=== PATIENT | female | born 1985 | race Caucasian/White ===

== ENCOUNTER 2018-02-21 10:55 | Emergency (ER) | payer OTHER, SELFPAY ==
[2018-02-21 11:04] VITALS: BP 105/60; PULSE 85; RESP 15; TEMP 37.2; O2SAT 100; BMI 21.6
--- NOTE | 2018-02-21 11:07 | ED.FEMALEGU ---
HPI - Female Genitourinary General Chief complaint: Urogenital-Female Stated complaint: PELVIC PAIN Time Seen by Provider: 02/21/18 11:06 Source: patient Mode of arrival: ambulatory Limitations: no limitations History of Present Illness HPI Narrative: 32 y/o female here for evaluation of pelvic pain. she states that it has been going on for the past day or so, no urinary sx, she is on her menses. has an IUD, no hx of STD's, no concerned about STD's. no vaginal discharge except for menses, no urinary sx, no bowel sx, no prior ABD surgeries, no skin changes, some nausea but no vomiting. Related Data Home Medications Medication Instructions Recorded Confirmed No Known Home Medications 02/21/18 02/21/18 Allergies Allergy/AdvReac Type Severity Reaction Status Date / Time No Known Drug Allergies Allergy Verified 02/21/18 11:04 Review of Systems Constitutional Denies fatigue, Denies fever(s) and Denies headache(s) ENT Ears, Nose, Mouth, and Throat: Denies vertigo and Denies headache(s) Cardiovascular Denies chest pain, Denies syncope and Denies dyspnea Respiratory Denies dyspnea Gastrointestinal Gastrointestinal: Denies abdominal pain, Denies melena, Denies bloating, Denies hematochezia, Denies cramping, Denies diarrhea, Denies loose stools, Reports nausea and Denies vomiting Comments: pelvic pain Genitourinary Denies amenorrhea, Denies hematuria, Denies urinary frequency, Denies genital pruritis, Denies dysuria, Denies urinary hesitancy, Reports vaginal discharge (menses), Denies vaginal dryness, Denies vaginal odor and Denies vaginal pruritus Musculoskeletal Denies myalgias and Denies arthralgias Integumentary/Breasts Denies lesions and Denies rash Neurologic Denies vertigo, Denies syncope and Denies headache(s) Endocrine Denies fatigue Hematologic/Lymphatic Denies easy bleeding and Denies easy bruising [facility] Surgical History History of third molar tooth extraction Status post delivery (11/11/12) Status post delivery (04/25/14) Family History Father Age: 61 Diabetes mellitus Heart disease Hypertension Stroke Grandmother Hypertension Kidney disease Mother Age: 56 Hypertension Grandfather Cancer Diabetes mellitus Heart disease Hypertension Grandmother Age: 82 Diabetes mellitus Hypertension Kidney disease Exam Initial Vital Signs Initial Vital Signs: Vital Signs Temperature 98.9 F 02/21/18 11:04 Pulse Rate 85 02/21/18 11:04 Respiratory Rate 15 02/21/18 11:04 Blood Pressure 105/60 02/21/18 11:04 Pulse Oximetry 100 02/21/18 11:04 Const General: cooperative, healthy appearing, comfortable, well developed, well groomed and No acute distress Orientation: alert, awake and oriented x3 HENMT Head: normal to inspection, normocephalic and atraumatic Resp Effort & Inspection: normal respiratory effort GI Inspection: normal to inspection, abdominal wall ecchymosis and non-distended Palpation: No soft, No firm, No rigid and No tender Other: tender to bilateral adnexa/lower abd General: bladder normal to palpation and No CVA tenderness Bimanual Exam- Vagina & Uterus: bladder normal to palpation Skin Lesions: no lesions Rashes: no rashes Neuro General: alert, awake and oriented x3 Extrem General: normal to inspection and capillary refill normal Psych Appearance: grossly normal and well kempt Course Vital Signs - 8 hr 02/21/18 11:04 Temperature 98.9 F Pulse Rate 85 Respiratory Rate 15 Blood Pressure 105/60 Pulse Oximetry 100 MDM - Female Genitourinary Lab Data Attestation: I reviewed the patient's lab results. Point of Care Testing Test Results Negative Urine Dip Bedside Urine Glucose Negative Bedside Urine Bilirubin - Negative Bedside Urine Ketone - Negative Urine Specific [place] 1.010 Bedside Urine Occult Blood ++ Bedside Urine pH 6.0 Bedside Urine Protein - Negative Bedside Urine Urobilinogen - Negative Bedside Urine Nitrite - Negative Bedside Urine Leukocytes - Negative Esterase Imaging Data US - abdomen: Radiologist's impression: [address] [address] Ultrasound Report Signed Patient: Oma Hdz JMR#: [id number] : 1985Acct:[id number] Age/Sex: 32 / FDate of Service: 02/21/18 Loc: ED Accession Number: [id number] Procedure: US pelvic complete Ordering Provider: Randy Gutiérrez D.O. PROCEDURE: US PELVIC COMPLETE INDICATIONS: Pelvic pain, sudden onset yesterday, eval for ovarian torsio TECHNIQUE: Real-time scanning was performed of the pelvic organs, with image documentation. Additional endovaginal scanning was necessary due to incomplete visualization of the adnexal and endometrial structures by transabdominal scanning. COMPARISON: None. FINDINGS: Transabdominal scanning: Limited scanning through the kidneys shows no hydronephrosis. No pathologic free abdominal or pelvic fluid. Endovaginal scanning: Uterus: Uterus is normal in size at 4.2 x 5.8 x 2 cm, anteverted. The endometrium measures 5 mm in combined thickness. There is a small amount of echogenic fluid within the endometrial space and an IUD. Ovaries: Normal measuring up to 2.7 x 2.6 x 3.4 cm on the right at 2.5 x 2.6 x 2.1 cm on the left IMPRESSION: Centrally positioned IUD noted within the endometrial space, is a small amount of endometrial free fluid, no endometrial mass or evidence of is present. Normal-appearing ovaries bilaterally. Dictated by: Roberto Perry M.D. on 02/21/2018 at 12:28 Approved by: Roberto Perry M.D. on 02/21/2018 at 12:31 MDM Narrative Medical decision making narrative: pt not concerned about STI's, pelvic US unremarkable, IUD in place. discussed with pt that her ovaries appear well on the US, labs unremarkable, no UTI, HCG neg. discussed that I did not have an exact etiology for her symptoms. informed her that we could obtain a CT scan to evaluate for other surgical pathology such as appy or SBO etc. After this discussion we decided not to do the CT scan and to instead wait to see if her symptoms worsen or [employer] exchange administrator the next 12-24 hours. she was informed that if her symptoms do not improve or worsen she should return to the ER to be re-evaluated and would consider a CT swcan at that point. she expressed understanding and agreement with the plan. Discharge Plan Departure Patient Disposition: Home Clinical Impression: Pelvic pain Discharge Date/Time: 02/21/18 13:00 Interventions: ED Discharge Assessment Last Done: 02/21/18 12:59 Instructions: DI for Pelvic Pain Activity Restrictions/Additional Instructions: After discussions today we opted not to perform a CT scan. This is not unreasonable given her presentation. If her symptoms worsen, if you have new symptoms, fevers, nausea vomiting, I recommend that you return to the emergency department for re-evaluation. Call your primary care doctor for a follow-up. Prescriptions: No Action No Known Home Medications RF: 0
--- NOTE | 2018-02-21 11:33 | DI.US.S_ITS ---
PROCEDURE: US PELVIC COMPLETE INDICATIONS: Pelvic pain, sudden onset yesterday, eval for ovarian torsio TECHNIQUE: Real-time scanning was performed of the pelvic organs, with image documentation. Additional endovaginal scanning was necessary due to incomplete visualization of the adnexal and endometrial structures by transabdominal scanning. COMPARISON: None. FINDINGS: Transabdominal scanning: Limited scanning through the kidneys shows no hydronephrosis. No pathologic free abdominal or pelvic fluid. Endovaginal scanning: Uterus: Uterus is normal in size at 4.2 x 5.8 x 2 cm, anteverted. The endometrium measures 5 mm in combined thickness. There is a small amount of echogenic fluid within the endometrial space and an IUD. Ovaries: Normal measuring up to 2.7 x 2.6 x 3.4 cm on the right at 2.5 x 2.6 x 2.1 cm on the left IMPRESSION: Centrally positioned IUD noted within the endometrial space, is a small amount of endometrial free fluid, no endometrial mass or evidence of is present. Normal-appearing ovaries bilaterally. Dictated by: Roberto Perry M.D. on 02/21/2018 at 12:28 Approved by: Roberto Perry M.D. on 02/21/2018 at 12:31
[2018-02-21 12:59] VITALS: BP 93/54; PULSE 64; RESP 17; TEMP 36.9; O2SAT 100
== END 2018-02-21 13:00 | disposition home or self-care (01) ==
PROVIDERS: Emergency Provider Emergency Medicine; Family Provider Internal Medicine; PCP Internal Medicine
DX: R10.2 Pelvic and perineal pain (principal)
CPT/HCPCS: 76830; 76856; 81003; 81025; 99282; 99284

== ENCOUNTER 2018-08-16 18:30 | Emergency (ER) | payer OTHER, SELFPAY ==
[2018-08-16 19:02] VITALS: BP 101/60; PULSE 67; RESP 15; TEMP 37.2; O2SAT 100; BMI 22.4
[2018-08-16] MEDS: ONDANSETRON 4 MG ODT SL (19:23)
--- NOTE | 2018-08-16 21:37 | DI.US.S_ITS ---
PROCEDURE: US OB <= 14 WEEKS FETUS INDICATIONS: BACK PAIN, ABDOMINAL PAIN, KNOWN 7 WEEKS OUTSIDE/PRIOR DATING DATA: Last menstrual period (LMP): 06/26/18. LMP-based estimated date of delivery (EDITH): 04/02/19. First dating scan (date and location): 08/16/18. Estimated date of delivery (EDITH) from first dating scan: 04/04/19. TECHNIQUE: Real-time scanning was performed of the fetus and maternal pelvic organs, with image documentation. COMPARISON: None. FINDINGS: Embryo: Single intrauterine gestational sac is seen with fetus and yolk sac noted. heart rate is 155 beats per minute. [place]-rump length measures 9 mm. Estimated gestational age is 7 weeks zero days. Estimated gestational age is 04/04/19. Measurement variability in dating: +/- 4 weeks by LMP, +/- 7 days by mean sac diameter (use before 6 weeks gestation if crown-rump length not able to be measured), +/- 5 days by crown-rump length (up to 8 weeks 6 days gestation), +/- 7 days by crown-rump length (up to 13 weeks 6 days gestation). Maternal organs: Ovaries are visualized and are within normal limits. Limited images through the kidneys demonstrate no hydronephrosis. IMPRESSION: Single live intrauterine with estimated gestational age of 7 weeks zero days. heart rate is 155 beats per minute. Normal appearing bilateral ovaries. Dictated by: Marcus Leblanc M.D. on 08/17/2018 at 9:32 Approved by: Marcus Leblanc M.D. on 08/17/2018 at 9:37
--- NOTE | 2018-08-16 21:39 | ED.HA ---
HPI - Headache General Chief Complaint: Headache Stated Complaint: has a horrible headache with N/V Time Seen by Provider: 08/16/18 21:27 Source: patient Mode of arrival: ambulatory Limitations: no limitations History of Present Illness HPI Narrative: The patient is a 33-year-old female who is currently 7 weeks she is (twins)1ab, presenting with headache. She does not typically get headaches she said this 1 started this afternoon she is sensitive to light and noise she felt nauseous she vomited she tried to take Tylenol and threw up Tylenol. She is having lower abdominal pain and back pain no vaginal bleeding. She has got some cramping. She has no fever no flank pain. no neck pain no history of headache MD Complaint: headache Related Data Home Medications Medication Instructions Recorded Confirmed No Known Home Medications 02/21/18 02/21/18 Allergies Allergy/AdvReac Type Severity Reaction Status Date / Time No Known Drug Allergies Allergy Verified 08/16/18 19:02 Review of Systems Review of Systems ROS Unobtainable: All systems reviewed & are unremarkable except as noted in HPI and below Constitutional Denies chills, Denies fever(s), Reports headache(s), Denies lethargy and Denies weakness ENT Ears, Nose, Mouth, and Throat: Denies change in voice, Denies vertigo, Denies dizziness, Reports headache(s), Denies neck pain and Denies sore throat Cardiovascular Denies chest pain, Denies syncope, Denies irregular heart rhythm, Denies lightheadedness, Denies palpitations, Denies dyspnea, Denies dyspnea on exertion and Denies orthopnea Respiratory Denies cough, Denies dyspnea, Denies dyspnea on exertion and Denies wheezing Gastrointestinal Gastrointestinal: Reports as per HPI, Reports abdominal pain, Denies diarrhea, Reports nausea and Reports vomiting Genitourinary Reports as per HPI and Reports flank pain Musculoskeletal Reports back pain and Denies neck pain Integumentary/Breasts Denies pruritus, Denies erythema, Denies rash and Denies wounds Neurologic Reports as per HPI, Denies vertigo, Denies dizziness, Denies syncope, Reports headache(s) and Denies weakness Endocrine Denies palpitations Allergic/Immunologic Denies wheezing [facility] Medical History Anxiety (Chronic 2014) Depression (Chronic 2014) Infertility (Chronic 2011) Migraines (Chronic 2009) Chicken pox (Resolved 1988) Ovarian cyst (Resolved 2010) Surgical History Anesthesia (Resolved) History of bilateral inguinal hernia repair (Resolved 09/06/17) History of third molar tooth extraction (Resolved 2008) Status post delivery (Resolved 11/11/12) Status post delivery (Resolved 04/25/14) Family History Father Age: 62 Diabetes mellitus Heart disease Hypertension Stroke Grandmother Hypertension Kidney disease Mother Age: 57 Hypertension Grandfather Cancer Diabetes mellitus Heart disease Hypertension Grandmother Age: 83 Diabetes mellitus Hypertension Kidney disease Social History Smoking Status: Unknown if ever smoked Family History Father Age: 62 Diabetes mellitus Heart disease Hypertension Stroke Grandmother Hypertension Kidney disease Mother Age: 57 Hypertension Grandfather Cancer Diabetes mellitus Heart disease Hypertension Grandmother Age: 83 Diabetes mellitus Hypertension Kidney disease Social History Smoking Status: Unknown if ever smoked Exam Initial Vital Signs Initial Vital Signs: Vital Signs Temperature 99.0 F 08/16/18 19:02 Pulse Rate 67 08/16/18 19:02 Respiratory Rate 15 08/16/18 19:02 Blood Pressure 101/60 08/16/18 19:02 Pulse Oximetry 100 08/16/18 19:02 GENERAL: Well-appearing, well-nourished and in no acute distress. HEENT: Head atraumatic,EOMI, pupils reactive, face symmetric, neck is supple no JVD CARDIOVASCULAR: Regular rate and rhythm without murmurs, rubs or gallops. RESPIRATORY: Breath sounds equal bilaterally, no wheezes rales or rhonchi. ABDOMEN: Soft, nontender. Normoactive bowel sounds all 4 quadrants. No guarding or rebound. EXTREMITIES: Normal range of motion, no clubbing or edema. Neurovascularly intact NEUROLOGICAL: Alert and oriented x4.Normal gait and speech. Cranial nerves II through XII grossly intact. Good [id number], good [id number], strength equal bilaterally, no dysarthria or aphasia, sensation in tact to soft touch bilaterally, no visual changes, no facial droop SKIN: Warm, dry, no laceration, no petechiae, no rashes or lesions. Course Orders Ordered: ED Orders 08/16/18 21:37 US OB <= 14 weeks fetus Stat ABO RH Type Stat Complete Blood Count AUTO DIFF Stat Comprehensive Metabolic Panel Stat HCG Quantitative Stat Discontinued Medications Acetaminophen (Tylenol) 975 mg PO NOW ONE Stop: 08/16/18 21:37 Last Admin: 08/16/18 21:47 Dose: 975 mg Sodium Chloride (Normal Saline 0.9%) 1,000 mls @ 1,000 mls/hr IV BOLUS ONE Stop: 08/16/18 22:35 Last Infusion: 08/16/18 22:52 Dose: 0 mls/hr Admin: 08/16/18 21:49 Dose: 1,000 mls/hr Ondansetron HCl (Zofran Odt) 4 mg SL NOW ONE Stop: 08/16/18 19:23 Last Admin: 08/16/18 19:23 Dose: 4 mg Vital Signs - 8 hr 08/16/18 22:00 08/16/18 23:23 Pulse Rate 56 L 65 Respiratory Rate 16 16 Blood Pressure [Right arm`] 90/46 L 96/52 L Pulse Oximetry 100 98 MDM - Headache Lab Data Attestation: I reviewed the patient's lab results. Result diagrams: 08/16/18 21:37 08/16/18 21:37 Lab Results 08/16/18 08/16/18 08/16/18 Range/Units 21:37 21:37 21:37 WBC 7.4 (4.5-11.0) X10^3/uL RBC 4.26 (4.0-5.2) X10^6/uL Hgb 12.9 (12.0-16.0) g/dL Hct 39.3 (36-46) % MCV 92.3 (80-100) fL MCH 30.4 (26-34) PG MCHC 32.9 (30-36) % RDW 14.4 (11.6-14.8) % Plt Count 243 (150-400) X10^3/uL Neut % (Auto) 74.1 (50-75) % Lymph % (Auto) 15.0 L (25-40) % [place] % (Auto) 9.7 (3-14) % Eos % (Auto) 0.6 L (2-4) % Baso % (Auto) 0.6 (0-2) % Neut # (Auto) 5500 (1449-7917) /uL Lymph # (Auto) 1100 (7792-2664) /uL [place] # (Auto) 700 (0-900) /uL Eos # (Auto) 0 (0-450) /uL Baso # (Auto) 0 (0-100) /uL Sodium 136 L (137-145) mmol/L Potassium 3.8 (3.4-5.1) mmol/L Chloride 101 (98-107) mmol/L Carbon Dioxide 26 (22-32) mmol/L BUN 12 (7-17) mg/dL Creatinine 0.70 (0.52-1.04) mg/dL Estimated GFR > 60.0 (>60) mL/min BUN/Creatinine Ratio 17.1 (6-22) Glucose 87 (70-100) mg/dL Calcium 9.9 (8.4-10.2) mg/dL Total Bilirubin 0.3 (0.2-1.3) mg/dL AST 25 (14-36) IU/L ALT 23 (9-52) IU/L Alkaline Phosphatase 51 (38-126) U/L Total Protein 8.2 (6.3-8.2) g/dL Albumin 4.8 (3.5-5.0) g/dL Globulin 3.4 (1.7-4.1) g/dL Albumin/Globulin Ratio 1.4 (1.0-2.8) HCG, Quant mIU/mL Blood Type A Positive 08/16/18 Range/Units 21:37 WBC (4.5-11.0) X10^3/uL RBC (4.0-5.2) X10^6/uL Hgb (12.0-16.0) g/dL Hct (36-46) % MCV (80-100) fL MCH (26-34) PG MCHC (30-36) % RDW (11.6-14.8) % Plt Count (150-400) X10^3/uL Neut % (Auto) (50-75) % Lymph % (Auto) (25-40) % [place] % (Auto) (3-14) % Eos % (Auto) (2-4) % Baso % (Auto) (0-2) % Neut # (Auto) (0209-9456) /uL Lymph # (Auto) (9794-8218) /uL [place] # (Auto) (0-900) /uL Eos # (Auto) (0-450) /uL Baso # (Auto) (0-100) /uL Sodium (137-145) mmol/L Potassium (3.4-5.1) mmol/L Chloride (98-107) mmol/L Carbon Dioxide (22-32) mmol/L BUN (7-17) mg/dL Creatinine (0.52-1.04) mg/dL Estimated GFR (>60) mL/min BUN/Creatinine Ratio (6-22) Glucose (70-100) mg/dL Calcium (8.4-10.2) mg/dL Total Bilirubin (0.2-1.3) mg/dL AST (14-36) IU/L ALT (9-52) IU/L Alkaline Phosphatase (38-126) U/L Total Protein (6.3-8.2) g/dL Albumin (3.5-5.0) g/dL Globulin (1.7-4.1) g/dL Albumin/Globulin Ratio (1.0-2.8) HCG, Quant 69887 mIU/mL Blood Type Urine Dip Bedside Urine Glucose Negative Bedside Urine Bilirubin - Negative Bedside Urine Ketone - Negative Urine Specific [place] 1.030 Bedside Urine Occult Blood - Negative Bedside Urine pH 5.0 Bedside Urine Protein - Negative Bedside Urine Urobilinogen - Negative Bedside Urine Nitrite - Negative Bedside Urine Leukocytes - Negative Esterase Imaging Data OB <14wks: Radiologist's impression: [employer]ix architect report: Single live intrauterine with estimated gestational age of 7 weeks 0 days 2 days a possible small right gestational hemorrhage measuring 1.9 x 0.8 x 0.9 cm heart rate 155 MDM Narrative Medical decision making narrative: Patient overall is feeling much better headache is improved she has not had any vomiting after Zofran. No sign of infection. Did discuss possible threatened miscarriage although she has no vaginal bleeding and at this time is ultrasound is reassuring. Recommended follow-up with her Ob Discharge Plan Departure Patient Disposition: Home Clinical Impression: Headache Qualifiers: Headache type: unspecified Headache chronicity pattern: acute headache Intractability: not intractable Qualified Code(s): R51 - Headache Discharge Date/Time: 08/16/18 23:40 Interventions: ED Discharge Assessment Last Done: 08/16/18 23:43 Instructions: DI for Hormonal and Tension Headaches Activity Restrictions/Additional Instructions: *You have been diagnosed with headache *What to do: At this time baby looks healthy is blood work within limits. [id number] *Continue to take medications as directed Tylenol 1000 mg every 6 hours only if needed for severe pain do not exceed more than 4 g a 24 hour *Follow up with your primary care provider in 2-3 days *Return to ER if you should have increasing headache, vaginal bleeding, abdominal pain or any new, worsening or concerning symptoms Prescriptions: No Action No Known Home Medications RF: 0
--- NOTE | 2018-08-16 21:42 | ED_ITS ---
HPI - Headache General Chief Complaint: Headache Stated Complaint: has a horrible headache with N/V Time Seen by Provider: 08/16/18 21:27 Source: patient Mode of arrival: ambulatory Limitations: no limitations History of Present Illness HPI Narrative: The patient is a 33-year-old female who is currently 7 weeks preg nant she is (twins)1ab, presenting with headache. She does not typically get headaches she said this 1 started this afternoon she is sensitive to light and noise she felt nauseous she vomited she tried to take Tylenol and threw up Tylenol. She is having lower abdominal pain and back pain no vaginal bleeding. She has got some cramping. She has no fever no flank pain. no neck pain no history of headache MD Complaint: headache Related Data Home Medications Medication Instructions Recorded Confirmed No Known Home Medications 02/21/18 02/21/18 Allergies Allergy/AdvReac Type Severity Reaction Status Date / Time No Known Drug Allergies Allergy Verified 08/16/18 19:02 Review of Systems Review of Systems ROS Unobtainable: All systems reviewed & are unremarkable except as noted in HPI and below Constitutional Denies chills, Denies fever(s), Reports headache(s), Denies lethargy and Denies weakness ENT Ears, Nose, Mouth, and Throat: Denies change in voice, Denies vertigo, Denies dizziness, Reports headache(s), Denies neck pain and Denies sore throat Cardiovascular Denies chest pain, Denies syncope, Denies irregular heart rhythm, Denies lightheadedness, Denies palpitations, Denies dyspnea, Denies dyspnea on exertion and Denies orthopnea Respiratory Denies cough, Denies dyspnea, Denies dyspnea on exertion and Denies wheezing Gastrointestinal Gastrointestinal: Reports as per HPI, Reports abdominal pain, Denies diarrhea, Reports nausea and Reports vomiting Genitourinary Reports as per HPI and Reports flank pain Musculoskeletal Reports back pain and Denies neck pain Integumentary/Breasts Denies pruritus, Denies erythema, Denies rash and Denies wounds Neurologic Reports as per HPI, Denies vertigo, Denies dizziness, Denies syncope, Reports headache(s) and Denies weakness Endocrine Denies palpitations Allergic/Immunologic Denies wheezing [facility] Medical History Anxiety (Chronic 2014) Depression (Chronic 2014) Infertility (Chronic 2011) Migraines (Chronic 2009) Chicken pox (Resolved 1988) Ovarian cyst (Resolved 2010) Surgical History Anesthesia (Resolved) History of bilateral inguinal hernia repair (Resolved 09/06/17) History of third molar tooth extraction (Resolved 2008) Status post delivery (Resolved 11/11/12) Status post delivery (Resolved 04/25/14) Family History Father Age: 62 Diabetes mellitus Heart disease Hypertension Stroke Grandmother Hypertension Kidney disease Mother Age: 57 Hypertension Grandfather Cancer Diabetes mellitus Heart disease Hypertension Grandmother Age: 83 Diabetes mellitus Hypertension Kidney disease Social History Smoking Status: Unknown if ever smoked Family History Father Age: 62 Diabetes mellitus Heart disease Hypertension Stroke Grandmother Hypertension Kidney disease Mother Age: 57 Hypertension Grandfather Cancer Diabetes mellitus Heart disease Hypertension Grandmother Age: 83 Diabetes mellitus Hypertension Kidney disease Social History Smoking Status: Unknown if ever smoked Exam Initial Vital Signs Initial Vital Signs: Vital Signs Temperature 99.0 F 08/16/18 19:02 Pulse Rate 67 08/16/18 19:02 Respiratory Rate 15 08/16/18 19:02 Blood Pressure 101/60 08/16/18 19:02 Pulse Oximetry 100 08/16/18 19:02 GENERAL: Well-appearing, well-nourished and in no acute distress. HEENT: Head atraumatic,EOMI, pupils reactive, face symmetric, neck is supple no JVD CARDIOVASCULAR: Regular rate and rhythm without murmurs, rubs or gallops. RESPIRATORY: Breath sounds equal bilaterally, no wheezes rales or rhonchi. ABDOMEN: Soft, nontender. Normoactive bowel sounds all 4 quadrants. No guarding or rebound. EXTREMITIES: Normal range of motion, no clubbing or edema. Neurovascularly intact NEUROLOGICAL: Alert and oriented x4.Normal gait and speech. Cranial nerves II through XII grossly intact. Good [id number], good [id number], strength equal bilaterally, no dysarthria or aphasia, sensation in tact to soft touch bilaterally, no visual changes, no facial droop SKIN: Warm, dry, no laceration, no petechiae, no rashes or lesions. Course Orders Ordered: ED Orders 08/16/18 21:37 US OB <= 14 weeks fetus Stat ABO RH Type Stat Complete Blood Count AUTO DIFF Stat Comprehensive Metabolic Panel Stat HCG Quantitative Stat Discontinued Medications Acetaminophen (Tylenol) 975 mg PO NOW ONE Stop: 08/16/18 21:37 Last Admin: 08/16/18 21:47 Dose: 975 mg Sodium Chloride (Normal Saline 0.9%) 1,000 mls @ 1,000 mls/hr IV BOLUS ONE Stop: 08/16/18 22:35 Last Infusion: 08/16/18 22:52 Dose: 0 mls/hr Admin: 08/16/18 21:49 Dose: 1,000 mls/hr Ondansetron HCl (Zofran Odt) 4 mg SL NOW ONE Stop: 08/16/18 19:23 Last Admin: 08/16/18 19:23 Dose: 4 mg Vital Signs - 8 hr 08/16/18 22:00 08/16/18 23:23 Pulse Rate 56 L 65 Respiratory Rate 16 16 Blood Pressure [Right arm`] 90/46 L 96/52 L Pulse Oximetry 100 98 MDM - Headache Lab Data Attestation: I reviewed the patient's lab results. Result diagrams: 08/16/18 21:37 08/16/18 21:37 Lab Results 08/16/18 08/16/18 08/16/18 Range/Units 21:37 21:37 21:37 WBC 7.4 (4.5-11.0) X10^3/uL RBC 4.26 (4.0-5.2) X10^6/uL Hgb 12.9 (12.0-16.0) g/dL Hct 39.3 (36-46) % MCV 92.3 (80-100) fL MCH 30.4 (26-34) PG MCHC 32.9 (30-36) % RDW 14.4 (11.6-14.8) % Plt Count 243 (150-400) X10^3/uL Neut % (Auto) 74.1 (50-75) % Lymph % (Auto) 15.0 L (25-40) % [place] % (Auto) 9.7 (3-14) % Eos % (Auto) 0.6 L (2-4) % Baso % (Auto) 0.6 (0-2) % Neut # (Auto) 5500 (0366-9169) /uL Lymph # (Auto) 1100 (3054-2991) /uL [place] # (Auto) 700 (0-900) /uL Eos # (Auto) 0 (0-450) /uL Baso # (Auto) 0 (0-100) /uL Sodium 136 L (137-145) mmol/L Potassium 3.8 (3.4-5.1) mmol/L Chloride 101 (98-107) mmol/L Carbon Dioxide 26 (22-32) mmol/L BUN 12 (7-17) mg/dL Creatinine 0.70 (0.52-1.04) mg/dL Estimated GFR > 60.0 (>60) mL/min BUN/Creatinine Ratio 17.1 (6-22) Glucose 87 (70-100) mg/dL Calcium 9.9 (8.4-10.2) mg/dL Total Bilirubin 0.3 (0.2-1.3) mg/dL AST 25 (14-36) IU/L ALT 23 (9-52) IU/L Alkaline Phosphatase 51 (38-126) U/L Total Protein 8.2 (6.3-8.2) g/dL Albumin 4.8 (3.5-5.0) g/dL Globulin 3.4 (1.7-4.1) g/dL Albumin/Globulin Ratio 1.4 (1.0-2.8) HCG, Quant mIU/mL Blood Type A Positive 08/16/18 Range/Units 21:37 WBC (4.5-11.0) X10^3/uL RBC (4.0-5.2) X10^6/uL Hgb (12.0-16.0) g/dL Hct (36-46) % MCV (80-100) fL MCH (26-34) PG MCHC (30-36) % RDW (11.6-14.8) % Plt Count (150-400) X10^3/uL Neut % (Auto) (50-75) % Lymph % (Auto) (25-40) % [place] % (Auto) (3-14) % Eos % (Auto) (2-4) % Baso % (Auto) (0-2) % Neut # (Auto) (2531-5362) /uL Lymph # (Auto) (8173-9941) /uL [place] # (Auto) (0-900) /uL Eos # (Auto) (0-450) /uL Baso # (Auto) (0-100) /uL Sodium (137-145) mmol/L Potassium (3.4-5.1) mmol/L Chloride (98-107) mmol/L Carbon Dioxide (22-32) mmol/L BUN (7-17) mg/dL Creatinine (0.52-1.04) mg/dL Estimated GFR (>60) mL/min BUN/Creatinine Ratio (6-22) Glucose (70-100) mg/dL Calcium (8.4-10.2) mg/dL Total Bilirubin (0.2-1.3) mg/dL AST (14-36) IU/L ALT (9-52) IU/L Alkaline Phosphatase (38-126) U/L Total Protein (6.3-8.2) g/dL Albumin (3.5-5.0) g/dL Globulin (1.7-4.1) g/dL Albumin/Globulin Ratio (1.0-2.8) HCG, Quant 87724 mIU/mL Blood Type Urine Dip Bedside Urine Glucose Negative Bedside Urine Bilirubin - Negative Bedside Urine Ketone - Negative Urine Specific Laie 1.030 Bedside Urine Occult Blood - Negative Bedside Urine pH 5.0 Bedside Urine Protein - Negative Bedside Urine Urobilinogen - Negative Bedside Urine Nitrite - Negative Bedside Urine Leukocytes - Negative Esterase Imaging Data OB <14wks: Radiologist's impression: mini shifter report: Single live intrauterine with estimated gestational age of 7 weeks 0 days 2 days a possible sma ll right gestational hemorrhage measuring 1.9 x 0.8 x 0.9 cm heart rate 155 MDM Narrative Medical decision making narrative: Patient overall is feeling much better headache is improved she has not had any vomiting after Zofran. No sign of infection. Did discuss possible threatened miscarriage although she has no vaginal bleeding and at this time is ultrasound is reassuring. Recommended follow-up with her Ob Discharge Plan Departure Patient Disposition: Home Clinical Impression: Headache Qualifiers: Headache type: unspecified Headache chronicity pattern: acute headache Intractability: not intractable Qualified Code(s): R51 - Headache Discharge Date/Time: 08/16/18 23:40 Interventions: ED Discharge Assessment Last Done: 08/16/18 23:43 Instructions: DI for Hormonal and Tension Headaches Activity Restrictions/Additional Instructions: *You have been diagnosed with headache *What to do: At this time baby looks healthy is blood work within limits. [id number] *Continue to take medications as directed Tylenol 1000 mg every 6 hours only if needed for severe pain do not exceed more than 4 g a 24 hour *Follow up with your primary care provider in 2-3 days *Return to ER if you should have increasing headache, vaginal bleeding, abdominal pain or any new, worsening or concerning symptoms Prescriptions: No Action No Known Home Medications RF: 0
[2018-08-16] MEDS: ACETAMINOPHEN 325 MG TABLET 975 MG PO (21:47)
[2018-08-16] MEDS: SODIUM CHLORIDE 0.9% 1,000 ML 1000 ML IV (21:49)
[2018-08-16 22:00] VITALS: BP 90/46; PULSE 56; RESP 16; O2SAT 100
[2018-08-16 22:28] LABS: Add Manual Diff / Slide Review NO; Basophils Absolute Auto 0 /uL (0-100); Basophils Percent Auto 0.6 % (0-2); Eosinophils Absolute Auto 0 /uL (0-450); Eosinophils Percent Auto 0.6 % (2-4); Hematocrit 39.3 % (36-46); Hemoglobin 12.9 g/dL (12.0-16.0); Lymphocytes Absolute Auto 1100 /uL (1100-4500); Mean Corpuscular HGB Conc 32.9 % (30-36); Mean Corpuscular Hemoglobin 30.4 PG (26-34); Mean Corpuscular Volume 92.3 fL (80-100); Monocytes Absolute Auto 700 /uL (0-900); Monocytes Percent Auto 9.7 % (3-14); Neutrophils Absolute Auto 5500 /uL (1500-7000); Neutrophils Percent Auto 74.1 % (50-75); Platelet Count 243 X10^3/uL (150-400); Red Blood Cell Count 4.26 X10^6/uL (4.0-5.2); Red Cell Distribution Width 14.4 % (11.6-14.8); White Blood Cell Count 7.4 X10^3/uL (4.5-11.0)
[2018-08-16 22:32] LABS: Alanine Aminotransferase 23 IU/L (9-52); Albumin 4.8 g/dL (3.5-5.0); Albumin Globulin Ratio 1.4 (1.0-2.8); Alkaline Phosphatase 51 U/L (38-126); Aspartate Aminotransferase 25 IU/L (14-36); BUN Creatinine Ratio 17.1 (6-22); Bilirubin Total 0.3 mg/dL (0.2-1.3); Blood Urea Nitrogen 12 mg/dL (7-17); Calcium 9.9 mg/dL (8.4-10.2); Carbon Dioxide 26 mmol/L (22-32); Chloride 101 mmol/L (98-107); Estimated Glomerular Filt Rate > 60.0 mL/min (>60); Globulin 3.4 g/dL (1.7-4.1); Glucose 87 mg/dL (70-100); HEMOLYSIS 18 (0-50); Potassium 3.8 mmol/L (3.4-5.1); Sodium 136 mmol/L (137-145); Total Protein 8.2 g/dL (6.3-8.2)
[2018-08-16 23:13] LABS: HCG Quantitative /Beta subunit 86357 mIU/mL
[2018-08-16 23:23] VITALS: BP 96/52; PULSE 65; RESP 16; O2SAT 98
== END 2018-08-16 23:40 | disposition home or self-care (01) ==
PROVIDERS: Emergency Provider Emergency Medicine
DX: R51 Headache (principal); R11.2 Nausea with vomiting, unspecified; R10.9 Unspecified abdominal pain; M54.9 Dorsalgia, unspecified; Z33.1 Pregnant state, incidental
CPT/HCPCS: 36591; 76801; 80053; 81003; 84702; 85025; 86900; 86901; 96360; 99283; 99284

== ENCOUNTER 2022-10-19 | Emergency (ER) | payer OTHER, SELFPAY ==
[2022-10-19 00:07] VITALS: BP 109/58; PULSE 89; RESP 16; TEMP 37.1; O2SAT 99; BMI 22.4
--- NOTE | 2022-10-19 00:18 | DI.RAD.S_ITS ---
PROCEDURE: XR ANKLE LT MIN 3V INDICATIONS: Injury TECHNIQUE: 3 views of the ankle were acquired. COMPARISON: None. FINDINGS: Bones: No fractures or dislocations. Ankle mortise is normally aligned. No suspicious bony lesions. Soft tissues: No tibiotalar joint effusion. Achilles tendon appears normal. IMPRESSION: 1. No fracture or dislocation. Dictated by: Jose Oropeza M.D. on 10/19/2022 at 1:14 Approved by: Jose Oropeza M.D. on 10/19/2022 at 1:19
--- NOTE | 2022-10-19 02:03 | ED.LOWEXIN ---
HPI - Extremity Injury (Lower) General Chief Complaint: Extremity Injury, Lower Stated Complaint: fell in back yard left ankle pain Time Seen by Provider: 10/19/22 02:03 Source: patient and family Mode of arrival: Wheelchair Limitations: no limitations History of Present Illness HPI Narrative: This is a 37-year-old female who presents with complaint of left ankle pain. She states she was walking in her backyard when she fell at home. Patient pain at the ankle both sides she states some numbness tingling. Increased pain with movement. Patient denies any other injuries. She is not taken anything for pain. Related Data Home Medications Medication Instructions Recorded Confirmed No Known Home Medications 02/21/18 02/21/18 Allergies Allergy/AdvReac Type Severity Reaction Status Date / Time No Known Drug Allergies Allergy Verified 08/16/18 19:02 Review of Systems Review of Systems ROS Unobtainable: All systems reviewed & are unremarkable except as noted in HPI and below Patient History Medical History (Updated 10/19/22 @ 02:15 by Angela Edmond DO) Anxiety (2014) Chicken pox (1988) Depression (2014) Infertility (2011) Migraines (2009) Ovarian cyst (2010) Surgical History Anesthesia History of bilateral inguinal hernia repair (09/06/17) History of third molar tooth extraction (2008) Status post delivery (11/11/12) Status post delivery (04/25/14) Family History Father Age: 66 Diabetes mellitus Heart disease Hypertension Stroke Grandmother Hypertension Kidney disease Mother Age: 61 Hypertension Grandfather Cancer Diabetes mellitus Heart disease Hypertension Grandmother Age: 87 Diabetes mellitus Hypertension Kidney disease Social History Smoking Status: Never smoker Smoking Status: Never smoker alcohol intake frequency: holidays/special occasions only Substance Use Type: does not use Exam Narrative Exam Narrative: GENERAL: Alert and oriented x three, female in mild distress. HEENT: Head normocephalic, atraumatic, EOMI, pupils reactive, face symmetric, moist mucous membranes NECK: Supple, full range of motion EXTREMITIES: Normal range of motion except at ankle, no clubbing or edema, no ecchymosis, no swelling appreciated. Neurovascularly intact. 2+ dorsalis pedis. Cap refill less than 2 seconds throughout all 5 toes. Sensation to touch. Patient has mild tenderness medial and lateral malleoli. No other bony tenderness appreciated on exam. Patient does have little discomfort over the Achilles. Achilles is palpable and intact on examination. NEUROLOGICAL: Cranial nerves II through XII grossly intact. Moving all extremities SKIN: Warm, dry, no petechiae, no rashes or lesions. Initial Vital Signs Initial Vital Signs: Vital Signs Temperature 98.7 F 10/19/22 00:07 Pulse Rate 89 10/19/22 00:07 Respiratory Rate 16 10/19/22 00:07 Blood Pressure 109/58 L 10/19/22 00:07 Pulse Oximetry 99 10/19/22 00:07 Oxygen Delivery Method Room Air 10/19/22 00:07 Course Orders Ordered: ED Orders 10/19/22 00:18 XR ankle LT min 3V Stat Vital Signs Vital signs: Vital Signs - 8 hr 10/19/22 00:07 10/19/22 02:20 Temperature 98.7 F Pulse Rate 89 60 Respiratory Rate 16 16 Blood Pressure 109/58 L 98/56 L Pulse Oximetry 99 98 Oxygen Delivery Method Room Air Room Air MDM - Extremity Injury (Lower) Imaging Data Extremity x-ray #1: Radiologist's Impression: Close Ankle X-Ray (Signed) Jose Oropeza - 10/19/22 Ultrasound (Signed) Marcus Leblanc - 08/16/18 Pelvis Ultrasound (Signed) Roberto Perry - 02/21/18 EKG Rpt. 09/07/17 Telemetry Strips 09/07/17 Launch?[address] [address] XRay Report Signed Patient: Oma Hdz MR#: [id number] : 1985 Acct:[id number] Age/Sex: 37 / F Date of Service: 10/19/22 Loc: ED Accession Number: [id number] ?? Procedure: XR ankle LT min 3V Ordering Provider: Angela Edmond D.O. PROCEDURE:? XR ANKLE LT MIN 3V ? INDICATIONS:? Injury ? TECHNIQUE:? 3 views of the ankle were acquired.? ? COMPARISON:? None. ? FINDINGS:? ? Bones:? No fractures or dislocations.? Ankle mortise is normally aligned.? No suspicious bony lesions.? ? Soft tissues:? No tibiotalar joint effusion.? Achilles tendon appears normal.? ? ? IMPRESSION:? ? 1. No fracture or dislocation. ? Dictated by: Jose Oropeza M.D. on 10/19/2022 at 1:14 ? ? Approved by: Jose Oropeza M.D. on 10/19/2022 at 1:19?? MDM Narrative Medical decision making narrative: 37-year-old female with injury to the left ankle when she stepped in a hole in her back yd earlier this evening. Patient meets unwell rules for criteria for x-ray imaging. Imaging is negative. Patient has pain with weight-bearing. Plan for crutches, David wrap, return precautions. Repeat imaging and evaluation in 7-10 days if symptoms are persisting. Discharge Plan Departure Patient Disposition: Home Clinical Impression: Left ankle sprain Instructions: DI for Ankle Sprain Activity Restrictions/Additional Instructions: Follow-up in 7-10 days if your symptoms are not improving for re-evaluation possibly repeat imaging for occult fracture. You may weightbear as tolerated. You can continue with Tylenol and/or ibuprofen as needed for pain. Splint Care: Keep splint clean and dry. Elevated affected body part to decrease swelling. OK to use ice pack on the affected body part. Use for 15-20 minutes each time, for 5-6x per day. If you develop worsening pain, numbness, tingling, discoloration of the affected body part, loosen the splint by loosening the DAVID wrap, and either see your doctor for an urgent re-assessment, or return to the Emergency Department. Return to the Emergency Department for any new or worsening symptoms. Prescriptions: No Action No Known Home Medications Referrals: ProviderVincent [Primary Care Provider] - Stand Alone Forms: Patient Portal/API
[2022-10-19 02:20] VITALS: BP 98/56; PULSE 60; RESP 16; O2SAT 98
== END 2022-10-19 02:20 | disposition home or self-care (01) ==
PROVIDERS: Emergency Provider Emergency Medicine
DX: S93.402A Sprain of unspecified ligament of left ankle, initial encounter (principal); W18.30XA Fall on same level, unspecified, initial encounter
CPT/HCPCS: 73610; 99282; 99283